=== PATIENT | female | born 1950 | race Caucasian/White ===

== ENCOUNTER 2017-10-10 14:48 | Day surgery (SDC) | payer MEDICARE, BC ==
[2017-10-10] MEDS ORDERED: FENTAnyl 50 MCG/ML VIAL (16:28)
[2017-10-10] MEDS ORDERED: MIDAZOLAM 1 MG/ML 2 ML INJ (16:28)
[2017-10-10] MEDS ORDERED: ROPIVACAINE 0.2% 20 ML VIAL (16:29)
[2017-10-10] MEDS ORDERED: LIDOCAINE 1% (MPF) 30 ML INJ (17:07)
[2017-10-10] MEDS ORDERED: BUPIVACAINE 0.5% (SDV) 30 ML INJ (17:07)
[2017-10-10] MEDS ORDERED: ONDANSETRON 4 MG INJ (17:09)
[2017-10-10] MEDS ORDERED: CEFAZOLIN 1 GM INJ (17:09)
[2017-10-10] MEDS ORDERED: PROPOFOL 20 ML (17:09)
[2017-10-10] MEDS ORDERED: DEXAMETHASONE 4 MG/ML 1 ML INJ (17:09)
[2017-10-10] MEDS ORDERED: ONDANSETRON 4 MG INJ IV (19:30)
[2017-10-10] MEDS ORDERED: HYDROmorphONE (0.2 MG/ML) 10ML SYG IV ×3 (19:30)
[2017-10-10] MEDS ORDERED: OXYCODONE/ACETAMINOPHEN (5/325) TAB PO ×2 (19:30)
[2017-10-10] MEDS ORDERED: KETOROLAC 30 MG INJ (19:52)
[2017-10-10] MEDS ORDERED: EPHEDrine SULFATE 50 MG/5 ML SYG (19:52)
== END 2017-10-10 22:03 | disposition home health service (06) ==
LOC: SDS 14:48
DX: S62.321A Displaced fracture of shaft of second metacarpal bone, left hand, initial encounter for closed fracture (principal); S62.323A Displaced fracture of shaft of third metacarpal bone, left hand, initial encounter for closed fracture; S62.325A Displaced fracture of shaft of fourth metacarpal bone, left hand, initial encounter for closed fracture; I10 Essential (primary) hypertension; X58.XXXA Exposure to other specified factors, initial encounter; Y93.89 Activity, other specified; Y92.89 Other specified places as the place of occurrence of the external cause; Y99.8 Other external cause status
CPT/HCPCS: 26615; 73130-LT